=== PATIENT | male | born 1970 ===

== ENCOUNTER 2021-03-11 19:33 | Inpatient (IN) | payer BC, OTHER ==
[~2021-03-11] VITALS: Ht 177.8 cm; Wt 92.8 kg
[2021-03-11] MEDS ORDERED: ACETAMINOPHEN TAB 650MG DOSE (2X325MG) PO PRN (23:45)
[2021-03-11] MEDS ORDERED: MAALOX 30 ML SUSP *UDC PO PRN (23:45)
[2021-03-11] MEDS ORDERED: MOM 30ML SUSPENSION UDC PO PRN (23:45)
[2021-03-11] MEDS ORDERED: ALBUTEROL 90 MCG/ACT 8GM HFA INHALER INH PRN (23:50)
[2021-03-12] VITALS (7 sets, daily range): BP systolic 101–118; BP diastolic 53–73; O2SAT 94–97
[2021-03-12] MEDS ORDERED: REMDESIVIR 200 MG in NS 250 ML IV ONE ×2
--- NOTE | 2021-03-12 00:01 | HPEPDOC ---
[facility] Medical History & Physical Date of Admission March 12, 2021 Date of Service: March 12, 2021 Attending Physician: SHAUN MEJIAS MD History and Physical TIME OF SERVICE: 105am CHIEF COMPLAINT: dyspnea HISTORY OF PRESENT ILLNESS: This 50 yr old M was diagnosed w COVID 19 on March 05 but has had persistent cough, dyspnea, n/v/d/ f/c & myalgias so he went to [facility]. His blood work was unremarkable except for a K of 2.1, CO2 of 33 & D-dimer of 827, while the chest xray showed bilateral infiltrates. He was diagnosed w hypoxemia 2/2 COVID 19 PNA, sepsis (HR 104, T 101) and hypokalemia; transfer was requested for a higher level of care. REVIEW OF SYSTEMS: 12-point review of systems negative except as listed in HPI PAST MEDICAL/ SURGICAL HISTORY: HTN, DLP, Pre-DM, GERD, IQRA, Depression, Carpal Tunnel syndrome, anxiety, vasectomy SOCIAL HISTORY: he doesnt smoke FAMILY HISTORY: Both parents HTN ALLERGIES: Please see below. HOME MEDICATIONS: Please see below. PHYSICAL EXAMINATION: Vital Signs Date Time Temp Pulse Resp B/P (MAP) Pulse Ox O2 Delivery O2 Flow Rate FiO2 03/12/21 00:00 96.6 100 20 118/73 (88) 93 Nasal Cannula 2.0 GENERAL APPEARANCE: well nourished and developed/ NAD HEENT: EOMI / MMM&P CARDIOVASCULAR: RRR/NMRG LUNGS: CTAB / 2L via NC ABDOMEN: contour convex MUSCULOSKELETAL: GIL x 4 INTEGUMENT: not flushed / lips a cyanotic NEUROLOGICAL: CN 2-12 grossly intact /speech not dysarthric PSYCHIATRIC: A&O x 3 /able to understand and follow all commands LABORATORY DATA: see HPI IMAGING: see HPI MICROBIOLOGY: + COVID 19 ASSESSMENT: is a 50 yr old w HTN, DLP, Pre-DM, GERD, IQRA, Depression & anxiety who was transferred from [facility] for management of sepsis 2/2 COVID 19 PNA. PLAN: 1 Sepsis 2/2 COVID-19 Plan: admit to PCU / continuous pulse ox / supplemental O2 (target O2 sats between 92-95%) / contact & air borne precautions / f/u repeat plts (if low indicates bad prognosis), CRP (if high indicates bad prognosis), INR, BMP (40% of pts with COVID develop VICTORIA) , INR, D-dimer, PT, PTT, fibrinogen (if patient has DIC indicates bad prognosis), ferritin, LDH, troponins (if elevated will need Echo to r/o viral cardiomyopathy) / ABG to assess the degree of hypoxemia /start abx for CAP pending, sputum cx, strep pneumo, legionella & mycoplasma, MRSA to r/o bacterial PNA / will start solumedrol, Remdesivir & order albuterol hand held inhaler 2 Hypokalemia 2/2 GI losses Plan: replete K 3 Essential HTN Plan: HTCZ, metoprolol 4 DLP Plan: atorvastatin 5 GERD, Plan: PPI 6 IQRA Plan: supplemental O2 7 Depression & anxiety Plan; bupropion DVT px w Lovenox and ASA Dispo: home after at least 2 midnights stay Home Medications Scheduled Atorvastatin Calcium (Atorvastatin Calcium) 40 Mg Tablet, 40 MG PO DAILY Azithromycin (Azithromycin) 250 Mg Tablet, 250 MG PO DAILY Bupropion HCl (Wellbutrin Xl) 300 Mg Tab.er.24h, 300 MG PO DAILY Hydrochlorothiazide (Hydrochlorothiazide) 25 Mg Tablet, 25 MG PO DAILY Metoprolol Succinate (Metoprolol Succinate) 50 Mg Tab.er.24h, 50 MG PO DAILY Omeprazole (Omeprazole) 20 Mg Capsule.dr, 20 MG PO DAILY Miscellaneous Medications [med rec comment ] PT. STATES HAS NOT TAKEN ANY MEDS IN 8 DAYS Allergies Coded Allergies: ENVIROMENTAL (Verified Allergy, Unknown, 03/12/21) A-FIB/CHADSVASC A-FIB History Current/History of A-Fib/PAF?: No Current PO Anticoag Therapy: No SHAUN MEJIAS MD March 12, 2021 00:01
[2021-03-12 00:35] LABS: BASO % 0.3 % (0.0-1.0); HEMATOCRIT 41.7 % (42.0-52.0); HEMOGLOBIN 14.4 g/dl (13.5-17.5); LYMPH # 1.1 10^3/uL (1.5-5.0); LYMPH % 11.8 % (24.0-44.0); MEAN CORPUSCULAR HGB CONC 34.5 g/dl (32.0-36.5); MEAN CORPUSCULAR VOLUME 89.7 fl (80.0-96.0); MONO # 0.6 10^3/uL (0.0-0.8); MONO % 6.7 % (2.0-8.0); NEUTROPHILS # 7.2 10^3/uL (1.5-8.5); PLATELET COUNT, AUTOMATED 247 10^3/uL (150-450); RED BLOOD COUNT 4.65 10^6/uL (4.30-6.10)
[2021-03-12 00:47] LABS: INR 1.04; PROTHROMBIN TIME 13.8 SECONDS (12.5-14.3)
[2021-03-12 00:48] LABS: PARTIAL THROMBOPLASTIN TIME 33.7 SECONDS (24.2-38.5)
[2021-03-12 00:50] LABS: D-DIMER QUANT 841.76 ng/ml (<500)
[2021-03-12] MEDS ORDERED: HYDR-3490 PO (00:57)
[2021-03-12] MEDS ORDERED: METO1TAB7 PO (00:57)
[2021-03-12] MEDS ORDERED: OMEP1CAP73 PO (00:57)
[2021-03-12] MEDS ORDERED: AZIT-10 PO (00:57)
[2021-03-12] MEDS ORDERED: ATOR40TA75 PO (00:57)
[2021-03-12] MEDS ORDERED: METF-838 PO (00:57)
[2021-03-12] MEDS ORDERED: WELLTAB40 PO (00:57)
[2021-03-12 01:14] LABS: ABG BASE EXCESS 4.3 (-2.0-2.0); ABG HCO3 26.5 MEQ/L (22.0-26.0); ABG O2 SATURATION 94.9 % (95.0-99.0); ABG PARTIAL PRESSURE CO2 32.4 mmHg (35.0-45.0); ABG PARTIAL PRESSURE O2 72.6 mmHg (75.0-100.0); ABG STANDARD HCO3 28.2 MEQ/L (22.0-26.0); ABG TOTAL CO2 27.5 MEQ/L (22.0-29.0)
[2021-03-12 01:18] LABS: ALBUMIN 2.4 GM/DL (3.2-5.2); ALT/SGPT 26 U/L (12-78); BILIRUBIN,DIRECT 0.4 MG/DL (0.0-0.2); BILIRUBIN,TOTAL 1.1 MG/DL (0.2-1.0); BLOOD UREA NITROGEN 15 MG/DL (7-18); CALCIUM LEVEL 7.8 MG/DL (8.5-10.1); CARBON DIOXIDE LEVEL 30 MEQ/L (21-32); CHLORIDE LEVEL 96 MEQ/L (98-107); CPK CREATINE PHOSPHOKINASE 96 U/L (39-308); CREATININE FOR GFR 0.86 MG/DL (0.70-1.30); FERRITIN 1162 NG/ML (26-388); GLOMERULAR FILTRATION RATE > 60.0 (>56); GLUCOSE, FASTING 165 MG/DL (70-100); LDH LACTATE DEHYDROGENASE 380 U/L (87-241); MAGNESIUM LEVEL 2.5 MG/DL (1.8-2.4); NT-PRO BNP 114 PG/ML (<125); POTASSIUM SERUM 3.1 MEQ/L (3.5-5.1); SODIUM LEVEL 135 MEQ/L (136-145); TOTAL PROTEIN 5.8 GM/DL (6.4-8.2); TROPONIN I < 0.02 NG/ML (< 0.10)
[2021-03-12] MEDS: AZITHROMYCIN INJ 500 MG, VIAL MATE ADAPTER 1 EACH in NS 250 ML IV SCH ×2 (01:34→23:17)
[2021-03-12] MEDS ORDERED: med rec comment (02:09)
[2021-03-12] MEDS: NS 1,000 ML IV SCH ×3 (02:42→13:38)
[2021-03-12] MEDS ORDERED: SODIUM CHLORIDE 0.9% INJ 10 ML SYR IV ONE (03:00)
[2021-03-12] MEDS: POTASSIUM CHLORIDE 10% LIQ 20 MEQ/15 ML UDC PO SCH ×2 (03:24→06:14)
[2021-03-12] MEDS ORDERED: VANCOMYCIN HCL 1,000 MG, VIAL MATE ADAPTER 1 EACH in NS 250 ML IV ONE ×2 (05:00→06:00)
[2021-03-12] MEDS: ENOXAPARIN 60MG/0.6ML SYRINGE (J1650 PER 10MG) SC SCH ×2 (06:15→17:34)
[2021-03-12] MEDS: dexameTHASONE 4 MG/ML 1ML VIAL (J1100 PER 1MG) IV SCH (08:47)
[2021-03-12] MEDS: ASPIRIN 81MG ENTERIC TABLET PO SCH (08:48)
[2021-03-12] MEDS: ATORVASTATIN 20 MG TAB PO SCH (08:48)
[2021-03-12] MEDS: buPROPion **XL** TABLET 150MG (WELLBUTRIN XL) PO SCH (08:48)
[2021-03-12] MEDS: METOPROLOL SUCC (TopROL XL) 50MG **XL** TAB PO SCH (08:49)
[2021-03-12] MEDS: OMEPRAZOLE 20 MG CAP PO SCH (08:49)
[2021-03-12 08:50] LABS: BASO % 0.4 % (0.0-1.0); EOS % 0.3 % (0.0-3.0); HEMATOCRIT 38.7 % (42.0-52.0); HEMOGLOBIN 13.1 g/dl (13.5-17.5); LYMPH # 1.3 10^3/uL (1.5-5.0); LYMPH % 16.8 % (24.0-44.0); MEAN CORPUSCULAR HEMOGLOBIN 30.5 pg (27.0-33.0); MEAN CORPUSCULAR HGB CONC 33.9 g/dl (32.0-36.5); MEAN CORPUSCULAR VOLUME 90.2 fl (80.0-96.0); MONO # 0.5 10^3/uL (0.0-0.8); MONO % 6.6 % (2.0-8.0); NEUTROPHILS # 5.7 10^3/uL (1.5-8.5); NEUTROPHILS % 74.2 % (36.0-66.0); PLATELET COUNT, AUTOMATED 245 10^3/uL (150-450); RED BLOOD COUNT 4.29 10^6/uL (4.30-6.10); WHITE BLOOD COUNT 7.7 10^3/uL (4.0-10.0)
[2021-03-12] MEDS ORDERED: ENOXAPARIN 40MG/0.4ML SYRINGE (J1650 PER 10MG) SC SCH (09:00)
[2021-03-12 09:11] LABS: BLOOD UREA NITROGEN 14 MG/DL (7-18); CALCIUM LEVEL 7.6 MG/DL (8.5-10.1); CARBON DIOXIDE LEVEL 31 MEQ/L (21-32); CHLORIDE LEVEL 100 MEQ/L (98-107); CREATININE FOR GFR 0.74 MG/DL (0.70-1.30); GLOMERULAR FILTRATION RATE > 60.0 (>56); GLUCOSE, FASTING 182 MG/DL (70-100); MAGNESIUM LEVEL 2.5 MG/DL (1.8-2.4); SODIUM LEVEL 135 MEQ/L (136-145)
[2021-03-12] MEDS ORDERED: VANCOMYCIN HCL 1,000 MG, VIAL MATE ADAPTER 1 EACH in NS 250 ML IV SCH (14:00)
[2021-03-12 14:02] LABS: APPEARANCE, URINE CLEAR (CLEAR); BACTERIA, URINE AUTO NEGATIVE (NEGATIVE); BILIRUBIN, URINE AUTO NEGATIVE (NEGATIVE); BLOOD, URINE BLOOD NEGATIVE (NEGATIVE); COLOR, URINE YELLOW (YELLOW); GLUCOSE, URINE (UA) AUTO 3+ mg/dL (NEGATIVE); KETONE, URINE AUTO NEGATIVE (NEGATIVE); LEUKOCYTE ESTERASE, URINE AUTO NEGATIVE (NEGATIVE); NITRITE, URINE AUTO NEGATIVE (NEGATIVE); PROTEIN, URINE AUTO NEGATIVE (NEGATIVE); RBC, URINE AUTO 0 /HPF (0-3); SPECIFIC GRAVITY URINE AUTO 1.012 (1.002-1.035); SQUAMOUS EPITHELIAL CELL UR AU 0 /HPF (0-6); UROBILINOGEN, URINE AUTO 0.2 mg/dL (0.0-2.0); WBC, URINE AUTO 1 /HPF (0-3)
[2021-03-12] MEDS: REMDESIVIR 100 MG in NS 250 ML IV SCH (20:59)
[2021-03-13] VITALS (12 sets, daily range): BP systolic 86–115; BP diastolic 54–65; O2SAT 91–97
[2021-03-13] MEDS: NS 1,000 ML IV SCH (00:28)
[2021-03-13] MEDS: ENOXAPARIN 60MG/0.6ML SYRINGE (J1650 PER 10MG) SC SCH ×2 (05:25→19:19)
[2021-03-13] MEDS: METOPROLOL SUCC (TopROL XL) 50MG **XL** TAB PO SCH (08:02)
[2021-03-13] MEDS: ATORVASTATIN 20 MG TAB PO SCH (08:24)
[2021-03-13] MEDS: OMEPRAZOLE 20 MG CAP PO SCH (08:24)
[2021-03-13] MEDS: ASPIRIN 81MG ENTERIC TABLET PO SCH (08:24)
[2021-03-13] MEDS: buPROPion **XL** TABLET 150MG (WELLBUTRIN XL) PO SCH (08:25)
[2021-03-13] MEDS: dexameTHASONE 4 MG/ML 1ML VIAL (J1100 PER 1MG) IV SCH (08:25)
[2021-03-13 08:59] LABS: INR 1.11; PROTHROMBIN TIME 14.5 SECONDS (12.5-14.3)
[2021-03-13 09:22] LABS: ALBUMIN 1.9 GM/DL (3.2-5.2); ALT/SGPT 20 U/L (12-78); BILIRUBIN,DIRECT 0.1 MG/DL (0.0-0.2); BILIRUBIN,TOTAL 0.5 MG/DL (0.2-1.0); CPK CREATINE PHOSPHOKINASE 75 U/L (39-308); FERRITIN 937 NG/ML (26-388); LDH LACTATE DEHYDROGENASE 329 U/L (87-241); NT-PRO BNP 617 PG/ML (<125); TOTAL PROTEIN 4.8 GM/DL (6.4-8.2); TROPONIN I < 0.02 NG/ML (< 0.10)
[2021-03-13 11:08] LABS: BLOOD UREA NITROGEN 14 MG/DL (7-18); CALCIUM LEVEL 7.4 MG/DL (8.5-10.1); CARBON DIOXIDE LEVEL 28 MEQ/L (21-32); CHLORIDE LEVEL 105 MEQ/L (98-107); CREATININE FOR GFR 0.63 MG/DL (0.70-1.30); GLOMERULAR FILTRATION RATE > 60.0 (>56); GLUCOSE, FASTING 152 MG/DL (70-100); POTASSIUM SERUM 3.4 MEQ/L (3.5-5.1); SODIUM LEVEL 141 MEQ/L (136-145)
[2021-03-13] MEDS: POTASSIUM CHLORIDE 10 MEQ SR TABLET PO SCH (12:41)
[2021-03-13] MEDS: KCL 40MEQ in NS 1000ML 1,000 ML IV SCH ×2 (12:42→19:19)
--- NOTE | 2021-03-13 16:39 | IPNPDOC ---
Subjective Date Seen The patient was seen on 03/13/21. Subjective Chief Complaint/HPI Diarrhea resolved, able to eat better. Needing oxygen at 1 liters. Objective Physical Examination General Exam: Positive: Alert, Cooperative, No Acute Distress Eye Exam: Positive: PERRLA, Conjunctiva & lids normal, EOMI; Negative: Sclera icteric ENT Exam: Positive: Atraumatic, Mucous membr. moist/pink, Pharynx Normal Chest Exam: Positive: Normal air movement, Diminished, Other (bilteral crackles) Heart Exam: Positive: Rate Normal, Regular Rhythm, Normal S1, Normal S2; Negative: Murmurs, Rubs Abdomen Exam: Positive: BS Hyperactive, Soft; Negative: Tenderness, Hepatospenomegaly Extremity Exam: Negative: Clubbing, Cyanosis, Edema Assessment /Plan Assessment is a 50 yr old w HTN, DLP, Pre-DM, GERD, IQRA, Depression & anxiety who was transferred from [facility] for management of sepsis 2/2 COVID 19 PNA. Patient was diagnosed with COVID on 03/05/21 and was doing ok at home except for continuous diarrhea and nausea with vomiting and inability to keep food down so went to the ED. COVID-19 pneumonia with hypoxia and diarrhea procalcitonin not elevated. Will stop antibiotics continue dexamethasone, Remdesivir, albuterol hand held inhaler Oxygen supplementation Hypokalemia 2/2 GI losses replete K Essential HTN Now Bp low likely due to diarrhea and dehydration will stop metoprolol adn HCTZ. Continue IVF. DLP atorvastatin GERD, PPI IQRA supplemental O2 Depression & anxiety bupropion Plan/VTE VTE Prophylaxis Ordered?: Yes VS, I&O, [facility] Vital Signs/I&O Vital Signs Date Time Temp Pulse Resp B/P (MAP) Pulse Ox O2 Delivery O2 Flow Rate FiO2 03/13/21 12:30 71 23 92/60 (71) 91 Nasal Cannula 2.0 03/13/21 04:00 96.7 I&O- Last 24 Hours up to 6 AM 03/13/21 06:00 Intake Total 4485 ml Output Total 850 ml Balance 3635 ml Laboratory Data 24H LABS Laboratory Tests 2 03/12/21 13:48: Urine Color YELLOW, Urine Appearance CLEAR, Urine pH 7.0, Urine Specific [place] 1.012, Urine Protein NEGATIVE, Urine Glucose (Auto)(UA) 3+H, Urine Ketones (Auto) NEGATIVE, Urine Blood NEGATIVE, Urine Nitrite NEGATIVE, Urine Bilirubin NEGATIVE, Urine Urobilinogen 0.2, Urine Leukocyte Esterase (Auto) NEGATIVE, Urine WBC (Auto) 1, Urine RBC (Auto) 0, Urine Hyaline Casts (Auto) 0, Urine Bacteria (Auto) NEGATIVE, Urine Squamous Epithelial Cells 0, Urine Sperm (Auto) 03/13/21 08:23: Prothrombin Time 14.5H, Prothromb Time International Ratio 1.11, Activated Partial Thromboplast Time 42.0H, Fibrinogen 546H, Anion Gap 8, Glomerular Filtration Rate > 60.0, Calcium Level 7.4L, Ferritin 937H, Total Bilirubin 0.5#, Direct Bilirubin 0.1, Aspartate Amino Transf (AST/SGOT) 24, Alanine Ami notransferase (ALT/SGPT) 20, Alkaline Phosphatase 64, Lactate Dehydrogenase 329H, Total Creatine Kinase 75, Troponin I < 0.02, LO-Rsy-D-Type Natriuretic Peptide 617H, Total Protein 4.8L, Albumin 1.9#L, Albumin/Globulin Ratio 0.7, Procalcitonin 0.11 CBC/BMP Laboratory Tests 03/13/21 08:23 Microbiology Microbiology 03/12/21 Blood Culture - Preliminary, Resulted No growth after 24 hours . All specim... THEODORE BOWMAN MD March 13, 2021 13:25
[2021-03-13] MEDS: REMDESIVIR 100 MG in NS 250 ML IV SCH (20:45)
[2021-03-13] MEDS: SODIUM CHLORIDE 0.9% INJ 10 ML SYR IV SCH (22:04)
[2021-03-14] VITALS: O2SAT 95
[2021-03-14 06:00] VITALS: BP 122/64
[2021-03-14] MEDS: ENOXAPARIN 60MG/0.6ML SYRINGE (J1650 PER 10MG) SC SCH ×2 (06:05→18:44)
[2021-03-14] MEDS: KCL 40MEQ in NS 1000ML 1,000 ML IV SCH (06:05)
[2021-03-14 07:03] LABS: BASO % 0.4 % (0.0-1.0); EOS % 0.6 % (0.0-3.0); HEMATOCRIT 37.8 % (42.0-52.0); HEMOGLOBIN 12.7 g/dl (13.5-17.5); LYMPH # 1.7 10^3/uL (1.5-5.0); LYMPH % 17.4 % (24.0-44.0); MEAN CORPUSCULAR HGB CONC 33.6 g/dl (32.0-36.5); MEAN CORPUSCULAR VOLUME 92.2 fl (80.0-96.0); MONO % 7.5 % (2.0-8.0); NEUTROPHILS # 6.7 10^3/uL (1.5-8.5); NEUTROPHILS % 70.9 % (36.0-66.0); PLATELET COUNT, AUTOMATED 303 10^3/uL (150-450); WHITE BLOOD COUNT 9.5 10^3/uL (4.0-10.0)
[2021-03-14 07:04] LABS: EOS # 0.1 10^3/uL (0.0-0.5); MONO # 0.7 10^3/uL (0.0-0.8)
[2021-03-14 07:31] LABS: BLOOD UREA NITROGEN 16 MG/DL (7-18); CALCIUM LEVEL 7.9 MG/DL (8.5-10.1); CARBON DIOXIDE LEVEL 29 MEQ/L (21-32); CHLORIDE LEVEL 112 MEQ/L (98-107); CREATININE FOR GFR 0.78 MG/DL (0.70-1.30); GLOMERULAR FILTRATION RATE > 60.0 (>56); GLUCOSE, FASTING 93 MG/DL (70-100); POTASSIUM SERUM 3.5 MEQ/L (3.5-5.1); SODIUM LEVEL 145 MEQ/L (136-145)
[2021-03-14 08:00] VITALS: BP 132/58; O2SAT 95
[2021-03-14] MEDS: ATORVASTATIN 20 MG TAB PO SCH (08:19)
[2021-03-14] MEDS: POTASSIUM CHLORIDE 10 MEQ SR TABLET PO SCH (08:19)
[2021-03-14] MEDS: buPROPion **XL** TABLET 150MG (WELLBUTRIN XL) PO SCH (08:20)
[2021-03-14] MEDS: ASPIRIN 81MG ENTERIC TABLET PO SCH (08:20)
[2021-03-14] MEDS: dexameTHASONE 4 MG/ML 1ML VIAL (J1100 PER 1MG) IV SCH (08:20)
[2021-03-14] MEDS ORDERED: OMEPRAZOLE 20 MG CAP PO SCH (09:00)
[2021-03-14] MEDS: CEPACOL LOZENGE PO PRN ×2 (09:05→14:28)
[2021-03-14] MEDS: CALCIUM CARBONATE 500 MG CHEW U/D PO PRN ×2 (09:05→23:12)
[2021-03-14 12:00] VITALS: BP 121/65; O2SAT 94
[2021-03-14] MEDS ORDERED: FUROSEMIDE 40MG/4ML VIAL (J1940) IV ONE (12:30)
[2021-03-14] MEDS ORDERED: FUROSEMIDE 100MG/10ML VIAL (J1940) IV ONE (12:45)
--- NOTE | 2021-03-14 13:56 | REP ---
INDICATION: SOB and Cough ? fluid overload.. COMPARISON: No comparison chest x-ray. TECHNIQUE: Portable upright AP chest radiograph. FINDINGS: EKG monitoring electrodes overlie the chest. Oxygen delivery tubing and nipple jewelry are noted. There are multifocal patchy interstitial and nodular densities throughout the lung wilburn bilaterally, particularly on the right. There is some pleural thickening along each lateral chest wall. The pleural angles are sharp however. Cardiomediastinal silhouette is unremarkable. No bony destructive lesion is seen. IMPRESSION: Extensive interstitial and alveolar nodular and infiltrative changes bilaterally. Heart does not appear to be enlarged and no evidence of pleural effusion. Multifocal pneumonia versus pulmonary metastatic disease versus other causes of nodules. Consider further imaging with chest CT study.. <Electronically signed by Abebe Bo > 03/14/21 [id number]
[2021-03-14 16:00] VITALS: O2SAT 91
[2021-03-14 16:12] LABS: BODY FLUID CULTURE Not indicated. (.); LEGIONELLA ANTIGEN URINE Negative (Negative); MYCOPLASMA PNEUMONIAE IgG 1536 U/mL (0-99); MYCOPLASMA PNEUMONIAE IgM <770 U/mL (0-769); ORGANISM ID Not indicated. (.); SPECIMEN SOURCE Urine (.); URINE STREP PNEUMONIAE ANTIGEN Negative (Negative)
[2021-03-14 20:00] VITALS: BP 110/62; O2SAT 94
[2021-03-14] MEDS: PANTOPRAZOLE 40MG VIAL (C9113 PER 1) IV SCH (20:46)
[2021-03-14] MEDS: REMDESIVIR 100 MG in NS 250 ML IV SCH (21:30)
[2021-03-14] MEDS: SODIUM CHLORIDE 0.9% INJ 10 ML SYR IV SCH (23:08)
[2021-03-15] VITALS: O2SAT 95
[2021-03-15 04:00] VITALS: BP 116/74; O2SAT 96
[2021-03-15] MEDS: ENOXAPARIN 60MG/0.6ML SYRINGE (J1650 PER 10MG) SC SCH (05:51)
[2021-03-15 08:05] LABS: INR 1.1; PROTHROMBIN TIME 14.4 SECONDS (12.5-14.3)
[2021-03-15 08:06] LABS: PARTIAL THROMBOPLASTIN TIME 40.2 SECONDS (24.2-38.5)
[2021-03-15] MEDS: buPROPion **XL** TABLET 150MG (WELLBUTRIN XL) PO SCH (08:20)
[2021-03-15] MEDS: PANTOPRAZOLE 40MG VIAL (C9113 PER 1) IV SCH (08:20)
[2021-03-15] MEDS: dexameTHASONE 4 MG/ML 1ML VIAL (J1100 PER 1MG) IV SCH (08:20)
[2021-03-15] MEDS: ATORVASTATIN 20 MG TAB PO SCH (08:20)
[2021-03-15] MEDS: ASPIRIN 81MG ENTERIC TABLET PO SCH (08:20)
[2021-03-15 08:27] LABS: ALBUMIN 2.1 GM/DL (3.2-5.2); ALT/SGPT 41 U/L (12-78); BILIRUBIN,DIRECT 0.2 MG/DL (0.0-0.2); BILIRUBIN,TOTAL 0.6 MG/DL (0.2-1.0); CPK CREATINE PHOSPHOKINASE 44 U/L (39-308); FERRITIN 622 NG/ML (26-388); LDH LACTATE DEHYDROGENASE 267 U/L (87-241); NT-PRO BNP 882 PG/ML (<125); TOTAL PROTEIN 4.8 GM/DL (6.4-8.2); TROPONIN I < 0.02 NG/ML (< 0.10)
[2021-03-15] MEDS ORDERED: DEXA6TAB PO (12:39)
[2021-03-15] MEDS ORDERED: ASPI-551 PO (12:39)
[2021-03-15] MEDS ORDERED: VENTAER INH (12:39)
[2021-03-15] MEDS ORDERED: SORE15LO PO (12:46)
--- NOTE | 2021-03-15 16:35 | DS.PDOC ---
Discharge Summary General Date of Admission March 11, 2021 at 23:49 Date of Discharge 03/15/21 Discharge Summary PROCEDURES PERFORMED DURING STAY: [None]. DISCHARGE DIAGNOSES: COVID -19 pneumonia Diarrhea and dehydration due to above Fluid overload after fluid resuscitation HTN IQRA Dep/ anxiety HLD GERD COMPLICATIONS/CHIEF COMPLAINT: Covid Pnuemonia. HOSPITAL COURSE: is a 50 yr old w HTN, DLP, Pre-DM, GERD, IQRA, Depression & anxiety who was transferred from [facility] for management of sepsis 2/2 COVID 19 PNA. Patient was diagnosed with COVID on 03/05/21 and was doing ok at home except for continuous diarrhea and nausea with vomiting and inability to keep food down so went to the ED. He was admitted for COVID -19 with hypoxia, diarrhea and dehydration. COVID-19 pneumonia with hypoxia and diarrhea procalcitonin not elevated. stopped antibiotics continue dexamethasone,albuterol Oxygen supplementation Fluid overload after IVF administration Had 3 L output after single dose of 60 mg IV lasix with improvement of cough, SOB and decreased oxygen requirement Echo has been done , report pending follow up with PCP. Hypokalemia 2/2 GI losses repleted K Essential HTN Now Bp low likely due to diarrhea and dehydration will stop metoprolol but restart HCTZ. DLP atorvastatin GERD, PPI IQRA will need sleep study Depression & anxiety bupropion DISCHARGE MEDICATIONS: Please see below. ALLERGIES: Please see below. PHYSICAL EXAMINATION ON DISCHARGE: VITAL SIGNS: Please see below. General Exam: Positive: Alert, Cooperative, No Acute Distress Eye Exam: Positive: PERRLA, Conjunctiva & lids normal, EOMI; Negative: Sclera icteric ENT Exam: Positive: Atraumatic, Mucous membr. moist/pink, Pharynx Normal Chest Exam: Positive: Normal air movement, Diminished, Other (bilteral crackles) Heart Exam: Positive: Rate Normal, Regular Rhythm, Normal S1, Normal S2; Negative: Murmurs, Rubs Abdomen Exam: Positive: BS Hyperactive, Soft; Negative: Tenderness, Hepatosplenomegaly Extremity Exam: Negative: Clubbing, Cyanosis, Edema LABORATORY DATA: Please see below. ACTIVITY: [As tolerated]. DIET: As tolerated DISPOSITION: 01 Home, Self-Care. DISCHARGE INSTRUCTIONS: Follow up PMD in 1 week Follow up echo results. TIME SPENT ON DISCHARGE:35 minutes. Vital Signs/I&Os Vital Signs Date Time Temp Pulse Resp B/P (MAP) Pulse Ox O2 Delivery O2 Flow Rate FiO2 03/15/21 09:00 1.0 03/15/21 04:00 96 Nasal Cannula 03/15/21 04:00 97.4 75 20 116/74 (88) I&O- Last 24 Hours up to 6 AM 03/15/21 07:00 Intake Total 2250 ml Output Total 5750 ml Balance -3500 ml Laboratory Data Labs 24H Laboratory Tests 2 03/15/21 07:06: Prothrombin Time 14.4H, Prothromb Time International Ratio 1.10, Activated Partial Thromboplast Time 40.2H, Fibrinogen 495H, Ferritin 622H, Total Bilirubin 0.6, Direct Bilirubin 0.2, Aspartate Amino Transf (AST/SGOT) 49H, Alanine Aminotransferase (ALT/SGPT) 41, Alkaline Phosphatase 69, Lactate Dehydrogenase 267H, Total Creatine Kinase 44, Troponin I < 0.02, ZW-Gjf-C-Type Natriuretic Peptide 882H, Total Protein 4.8L, Albumin 2.1L, Albumin/Globulin Ratio 0.8, Procalcitonin 0.09 Microbiology Microbiology 03/12/21 Blood Culture - Preliminary, Resulted No Growth after 72 hours. All specime... Discharge Medications Scheduled Aspirin (Aspirin EC) 81 Mg Tablet.dr, 81 MG PO DAILY Atorvastatin Calcium (Atorvastatin Calcium) 40 Mg Tablet, 40 MG PO DAILY, (Reported) Bupropion HCl (Wellbutrin Xl) 300 Mg Tab.er.24h, 300 MG PO DAILY, (Reported) Dexamethasone (Dexamethasone) 6 Mg Tablet, 1 TAB PO DAILY Hydrochlorothiazide (Hydrochlorothiazide) 25 Mg Tablet, 25 MG PO DAILY, (R eported) Omeprazole (Omeprazole) 20 Mg Capsule.dr, 20 MG PO DAILY, (Reported) Scheduled PRN Albuterol Sulfate (Ventolin Hfa) 18 Gm Hfa.aer.ad, 2 PUFF INH Q4HP PRN for SHORTNESS OF BREATH Benzocaine/Menthol (Sore Throat Lozenge) 1 Each Lozenge, 1 ARCHANA PO Q2HP PRN for COUGH Miscellaneous Medications [med rec comment ] , (Reported) PT. STATES HAS NOT TAKEN ANY MEDS IN 8 DAYS Allergies Coded Allergies: ENVIROMENTAL (Verified Allergy, Unknown, 03/12/21) THEODORE BOWMAN MD March 15, 2021 16:35
--- NOTE | 2021-03-19 08:05 | ECHO ---
DATE OF PROCEDURE: 03/14/2021 Age: 50 Gender: Male REFERRING PHYSICIAN: Celina Ruiz MD. PATIENT LOCATION: Room 4106. REASON FOR STUDY: Congestive heart failure, unspecified. COVID-19. 2D MEASUREMENTS: IVS 1.3 cm LV 4.6 cm LVPW 1.3 cm LA 2.7 cm Aorta 4.0 cm IVC 1.6 cm DOPPLER MEASUREMENT Peak velocity across the aortic valve 1.1 m/s Peak velocity across the LVOT 0.78 m/s Mitral E 0.60 Mitral A 0.55 with a ratio of 1.1 2D COMMENTS: 1. Mildly increased left ventricular wall thickness with normal left ventricular size and low normal global left ventricular systolic function. The estimated left ventricular systolic ejection fraction is 50% to 55%. 2. Normal left atrium. Normal right atrium and right ventricle. 3. The atrial septum appeared to be normal without evidence of defect or shunt. 4. Mildly dilated aortic root at 4.0 cm. 5. Trace pericardial effusion, no evidence of cardiac tamponade. 6. The aortic valve, the mitral valve, the tricuspid valve, and the pulmonic valve appear to be normal. DOPPLER: No significant abnormalities detected, but trace pulmonic regurgitation. Assessment of the left ventricular diastolic function was normal. IMPRESSION: 1. Low normal global left ventricular systolic function with mild concentric left ventricular hypertrophy. Assessment of the left ventricular diastolic function appeared to be normal. 2. Trace pericardial effusion, no evidence of cardiac tamponade. 3. No significant valvular abnormalities, but trace pulmonic regurgitation. MTDD
== END 2021-03-15 15:41 | disposition home or self-care (01) | DRG 137 ==
LOC: M 4MAIN 23:49
PROVIDERS: ADMIT Internal Medicine; ATTEND Internal Medicine Nephrology
DX: U07.1 COVID-19 (principal); J12.82 Pneumonia due to coronavirus disease 2019; G47.33 Obstructive sleep apnea (adult) (pediatric); K21.9 Gastro-esophageal reflux disease without esophagitis; R19.7 Diarrhea, unspecified; E86.0 Dehydration; I10 Essential (primary) hypertension; F32.9 Major depressive disorder, single episode, unspecified; F41.9 Anxiety disorder, unspecified; E87.6 Hypokalemia; Z79.899 Other long term (current) drug therapy; Z79.82 Long term (current) use of aspirin